=== PATIENT | male | born 1985 | race Caucasian/White ===

== ENCOUNTER 2017-03-29 07:46 | Observation (INO) | payer BC ==
[2017-03-29] MEDS ORDERED: Ondansetron 4 MG/2 ML SDV IVPUSH ONE (07:48)
[2017-03-29] MEDS ORDERED: Sodium Chloride 0.9% 1,000 ML IV ONE ×2 (07:49→09:01)
[2017-03-29] MEDS ORDERED: Ketorolac 30 MG/ML SDV IVPUSH ONE (07:49)
[2017-03-29] MEDS ORDERED: Tamsulosin 0.4 MG Cap.ER PO ONE (08:42)
--- NOTE | 2017-03-29 08:48 | EDM.PDOC ---
ED HPI GENERAL MEDICAL PROBLEM - General Chief Complaint: Back Pain or Injury Stated Complaint: Right back pain Time Seen by Provider: 03/29/17 08:15 Source of Information: Reports: Patient History Limitations: Reports: No Limitations - History of Present Illness INITIAL COMMENTS - FREE TEXT/NARRATIVE: Right sided lower back pain, sharp at times, overall constant in nature, since 0400 today. Had brief episode of similar pain several days ago. Dysuria for the last week or so. No hematuria. Also more frequency. Denies nausea/emesis. No fever. Hx of multiple kidney stones in past. Right Flank Pain Score (Numeric/FACES): 8 - Related Data Allergies Allergy/AdvReac Type Severity Reaction Status Date / Time No Known Allergies Allergy Verified 08/26/15 08:48 Home Meds: Home Meds Tamsulosin HCl [Flomax] 0.4 mg PO DAILY 03/29/17 [History] Past Medical History Genitourinary History: Reports: Renal Calculus Other Dermatologic History: superficial eczema-like Social & Family History - Tobacco Use Smoking Status *Q: Current Every Day Smoker Years of Tobacco use: 15 Packs/Tins Daily: 0.5 Used Tobacco, but Quit: No Month Tobacco Last Used: 08/26/15 Second Hand Smoke Exposure: No - Caffeine Use Caffeine Use: Reports: Coffee, Soda - Alcohol Use Days Per Week of Alcohol Use: 0 (No previous DWIs, problems with alcohol abuse, etc.) - Recreational Drug Use Recreational Drug Use: No Drug Use in Last 12 Months: Yes Recreational Drug Type: Reports: Marijuana/Hashish Recreational Drug Use Frequency: Rarely - Living Situation & Occupation Living situation: Reports: , ED ROS GENERAL - Review of Systems Review Of Systems: See Below Constitutional: Reports: Decreased Appetite. Denies: Fever, Chills, Weakness, Night Sweats, Diaphoresis HEENT: Reports: No Symptoms Respiratory: Reports: No Symptoms Cardiovascular: Reports: No Symptoms GI/Abdominal: Reports: Abdominal Pain, Decreased Appetite. Denies: Constipation , Diarrhea, Difficulty Swallowing, Distension, Hematemesis, Hematochezia, Nausea , Vomiting : Reports: Dysuria, Flank Pain, Frequency, Pain, Urgency. Denies: Hematuria, Incontinence, Urinary Retention Musculoskeletal: Reports: No Symptoms Skin: Reports: No Symptoms Neurological: Reports: No Symptoms Psychiatric: Reports: No Symptoms ED EXAM, GI/ABD - Physical Exam Exam: See Below Exam Limited By: No Limitations General Appearance: Alert, WD/WN, Moderate Distress Eyes: Bilateral: Normal Appearance, EOMI Ears: Normal External Exam Nose: Normal Inspection. No: Nasal Swelling, Nasal Drainage Throat/Mouth: Normal Lips, Normal Voice, No Airway Compromise Head: Atraumatic, Normocephalic Neck: Normal Inspection, Supple, Non-Tender, Full Range of Motion Respiratory/Chest: No Respiratory Distress, Lungs Clear, Normal Breath Sounds, No Accessory Muscle Use, Chest Non-Tender Cardiovascular: Regular Rate, Rhythm, No Murmur GI/Abdominal: Normal Bowel Sounds, Soft, Tenderness (bobby-umbilical area). No: Distention, Guarding, Rebound, Rigidity (Male) Exam: Deferred Rectal (Males) Exam: Deferred Back Exam: CVA Tenderness (R) Extremities: Normal Inspection, Normal Range of Motion, Non-Tender, No Pedal Edema, Normal Capillary Refill, Increased Warmth Neurological: Alert, Normal Cognition, Normal Gait, No Motor/Sensory Deficits Psychiatric: Normal Affect, Normal Mood Skin Exam: Warm, Dry, Intact, Normal Color Course - Vital Signs Last Recorded V/S: Last Vital Signs Temp 36.3 C 03/29/17 08:07 Pulse Resp 18 03/29/17 08:07 BP 130/109 H 03/29/17 08:07 Pulse Ox 100 03/29/17 08:07 - Orders/Labs/Meds Orders: Active Orders 24 hr Category Date Time Status Abdomen Pelvis wo Cont [CT] Stat Exams 03/29/17 07:50 Ordered Sodium Chloride 0.9% [Normal Saline] 1,000 ml Med 03/29/17 07:49 Active IV .BOLUS Medication Orders Sodium Chloride (Normal Saline) 1,000 mls @ 999 mls/hr IV .BOLUS ONE Stop: 03/29/17 08:49 Last Admin: 03/29/17 07:58 Dose: 999 mls/hr Meds: Medications Generic Name Dose Route Start Last Admin Trade Name Freq PRN Reason Stop Dose Admin Sodium Chloride 1,000 mls @ 999 mls/hr 03/29/17 07:49 03/29/17 07:58 Normal Saline IV 03/29/17 08:49 999 mls/hr .BOLUS ONE Administration Discontinued Medications Generic Name Dose Route Start Last Admin Trade Name Freq PRN Reason Stop Dose Admin Ketorolac Tromethamine 30 mg 03/29/17 07:49 03/29/17 07:53 Toradol IVPUSH 03/29/17 07:50 30 mg ONETIME ONE Administration Ondansetron HCl 4 mg 03/29/17 07:48 03/29/17 07:53 Zofran IVPUSH 03/29/17 07:49 4 mg ONETIME ONE Administration - Radiology Interpretation CT Results Date: 03/29/17 CT Results Time: 08:30 (3.5mm stone right at UVJ on right side) - Re-Assessments/Exams Free Text/Narrative Re-Assessment/Exam: 03/29/17 08:50 Pain improved after Toradol. CT confirmed stone. Admitted Obs for pain control and IV hydration. Departure - Departure Time of Disposition: 08:50 Disposition: Refer to Observation Condition: Good Clinical Impression: Tobacco user, Nephrolithiasis - Discharge Information Forms: ED Department Discharge - Problem List & Annotations (1) Nephrolithiasis SNOMED Code(s): 44911569 Code(s): N20.0 - CALCULUS OF KIDNEY Status: Acute Priority: High Current Visit: Yes Onset Date: ~03/29/17 Annotation/Comment:: 3.5mm stone at UVJ on right (2) Tobacco use SNOMED Code(s): 794136179 Code(s): Z72.0 - TOBACCO USE Status: Chronic Priority: Low Current Visit: No - Problem List Review Problem List Initiated/Reviewed/Updated: Yes - My Orders Last 24 Hours: My Active Orders 03/29/17 07:49 Sodium Chloride 0.9% [Normal Saline] 1,000 ml IV .BOLUS 03/29/17 07:50 Abdomen Pelvis wo Cont [CT] Stat - Assessment/Plan Admission H&P: Please use this note as an admission H&P Last 24 Hours: My Active Orders 03/29/17 07:49 Sodium Chloride 0.9% [Normal Saline] 1,000 ml IV .BOLUS 03/29/17 07:50 Abdomen Pelvis wo Cont [CT] Stat Assessment:: Kidney stone with right sided pain. Plan: IV fluids, pain and nausea management. Strain urine and observe for passage of stone.
[2017-03-29] MEDS ORDERED: HYDROmorphone 1 MG/ML Syringe IVPUSH ONE (08:53)
[2017-03-29] MEDS ORDERED: Bisacodyl 10 MG Supp RECTAL PRN (08:57)
[2017-03-29] MEDS ORDERED: Magnesium Hydroxide 400 MG/5 ML Susp 30 ML Cup PO PRN (08:57)
[2017-03-29] MEDS ORDERED: HYDROmorphone 1 MG/ML Syringe IVPUSH PRN (09:00)
[2017-03-29] MEDS ORDERED: Acetaminophen 325 MG Tab PO PRN (09:00)
[2017-03-29] MEDS: Sodium Chloride 0.9% 1,000 ML IV SCH ×2 (13:19→18:56)
[2017-03-29] MEDS ORDERED: Ondansetron 4 MG/2 ML SDV IVPUSH PRN (14:00)
[2017-03-29 14:10] LABS: CHLORIDE,CL 106 mmol/L (98-107); SODIUM,NA 139 mmol/L (136-145)
[2017-03-29] MEDS: Ketorolac 30 MG/ML SDV IVPUSH PRN (18:56)
[2017-03-30] MEDS: Ketorolac 30 MG/ML SDV IVPUSH PRN ×2 (00:13→10:56)
[2017-03-30] MEDS: Sodium Chloride 0.9% 1,000 ML IV SCH ×2 (00:13→08:09)
[2017-03-30 08:06] VITALS: BP 108/55
[2017-03-30] MEDS ORDERED: Tamsulosin 0.4 MG Cap.ER PO ONE (10:55)
--- NOTE | 2017-03-30 10:59 | PCM.DCSUM1 ---
Discharge Summary - Discharge Data Discharge Date: 03/30/17 Discharge Disposition: Home, Self-Care 01 Condition: Good - Discharge Diagnosis/Problem(s) (1) Nephrolithiasis SNOMED Code(s): 42211952 ICD Code: N20.0 - CALCULUS OF KIDNEY Status: Acute Priority: High Current Visit: Yes Onset Date: ~03/29/17 Problem Details: 3.5mm stone at UVJ on right (2) Tobacco use SNOMED Code(s): 836834170 ICD Code: Z72.0 - TOBACCO USE Status: Chronic Priority: Low Current Visit: No - Patient Summary/Data Complications: none Hospital Course: Pain controlled. IV fluids given. Urine strained but no stone noted to pass. Patient requests to go home and continue to strain urine/use PRN meds to control any new pain. Has Urology appointment tomorrow. - Patient Instructions Diet: Usual Diet as Tolerated Activity: As Tolerated Driving: May Drive Today Showering/Bathing: May Shower - Discharge Plan Prescriptions/Med Rec: Tamsulosin HCl [Flomax] 0.4 mg PO DAILY #30 cap.er.24h Home Medications: Home Meds Tamsulosin HCl [Flomax] 0.4 mg PO DAILY #30 cap.er.24h 03/30/17 [Rx] Forms: ED Department Discharge Referrals: Jenni Mac NP [Primary Care Provider] - - Discharge Summary/Plan Comment DC Time >30 min.: No Discharge Summary/Plan Comment: Continue to strain urine. Follow up with Urology this week as scheduled. Toradol 10mg every 6-8 hours as needed for pain. Keep hydrated. - General Info Date of Service: 03/30/17 Admission Dx/Problem (Free Text: kidney stone. Admitted for pain control and hydration. Functional Status: Reports: pain controlled (Pain/discomfort has completely resolved. ), tolerating diet, ambulating, urinating. Denies: new symptoms - Review of Systems General: Reports: No Symptoms HEENT: Reports: no symptoms Pulmonary: Reports: no symptoms Cardiovascular: Reports: No Symptoms Gastrointestinal: Reports: No symptoms Genitourinary: Reports: no symptoms Musculoskeletal: Reports: no symptoms Skin: Reports: no symptoms Neurological: Reports: No Symptoms Psychiatric: Reports: no symptoms - Patient Data Vitals - Most Recent: Last Vital Signs Temp 36.4 C 03/30/17 08:00 Pulse 68 03/30/17 08:00 Resp 16 03/30/17 08:00 BP 108/55 L 03/30/17 08:00 Pulse Ox 94 L 03/30/17 08:00 Weight - Most Recent: 117.48 kg I&O - Last 24 hours: Intake & Output 03/29/17 03/30/17 03/30/17 22:59 06:59 14:59 Intake Total 1599 2009 420 Output Total 1500 Balance 99 2009 420 Lab Results - Last 24 hrs: Laboratory Results - last 24 hr 03/29/17 03/29/17 03/29/17 Range/Units 13:50 14:05 17:30 WBC 9.6 (4.0-10.2) K/uL RBC 4.46 (4.33-5.41) M/uL Hgb 14.1 D (13.1-16.8) g/dL Hct 42.1 (39.0-49.0) % MCV 94.4 (84.0-98.0) fL MCH 31.6 (28.2-33.3) pg MCHC 33.5 (31.7-36.0) g/dL RDW 12.3 (11.2-14.1) % Plt Count 169 (150-350) K/uL Neut % (Auto) 63.0 (45.0-80.0) % Lymph % (Auto) 22.7 (10.0-50.0) % [place] % (Auto) 10.1 (2.0-14.0) % Eos % (Auto) 3.5 (0.0-5.0) % Baso % (Auto) 0.7 (0.0-2.0) % Neut # (Auto) 6.05 (1.40-7.00) K/uL Lymph # (Auto) 2.18 (0.50-3.50) K/uL [place] # (Auto) 0.97 (0.00-1.00) K/uL Eos # (Auto) 0.34 (0.00-0.50) K/uL Baso # (Auto) 0.07 (0.00-0.20) K/uL Sodium 139 (136-145) mmol/L Potassium 3.9 (3.5-5.1) mmol/L Chloride 106 (98-107) mmol/L Carbon Dioxide 26.9 (21.0-32.0) mmol/L BUN 11 (7-18) mg/dL Creatinine 1.12 (0.51-1.17) mg/dL Est Cr Clr Drug Dosing 102.00 mL/min Estimated GFR (MDRD) > 60 mL/min Glucose 94 (74-106) mg/dL Calcium 7.7 L (8.5-10.1) mg/dL Total Bilirubin 0.4 (0.2-1.0) mg/dL AST 18 (15-37) U/L ALT 30 (12-78) U/L Alkaline Phosphatase 64 (46-116) IU/L Total Protein 6.1 L (6.4-8.2) g/dL Albumin 3.3 L (3.4-5.0) g/dL Specimen Type Urinblad Urine Color Light yellow Urine Appearance Clear Urine pH 6.0 (5.0-9.0) Ur Specific [place] 1.010 (1.005-1.030) Urine Protein Negative (NEGATIVE) mg/dL Urine Glucose (UA) Negative (NEGATIVE) mg/dL Urine Ketones Negative (NEGATIVE) mg/dL Urine Occult Blood Small H (NEGATIVE) Urine Nitrite Negative (NEGATIVE) Urine Bilirubin Negative (NEGATIVE) Urine Urobilinogen 0.2 (0.2-1.0) E.U./dL Ur Leukocyte Esterase Negative (NEGATIVE) Urine RBC 0-5 /HPF Urine WBC 0-5 /HPF Ur Epithelial Cells Rare /LPF Urine Bacteria Not seen (NONE TO FEW) /HPF Med Orders - Current: Current Medications Acetaminophen (Tylenol) 650 mg PO Q4H PRN PRN Reason: analgesia/fever Last Admin: 03/29/17 10:27 Dose: 650 mg Bisacodyl (Dulcolax) 10 mg RECTAL DAILY PRN PRN Reason: Constipation Hydromorphone HCl (Dilaudid) 1 mg IVPUSH Q2H PRN PRN Reason: Pain (severe 7-10) Last Admin: 03/29/17 10:25 Dose: 1 mg Sodium Chloride (Normal Saline) 1,000 mls @ 150 mls/hr IV ASDIRECTED LISET Last Admin: 03/30/17 08:09 Dose: 150 mls/hr Ketorolac Tromethamine (Toradol) 30 mg IVPUSH Q6H PRN PRN Reason: Pain Stop: 04/03/17 14:01 Last Admin: 03/30/17 00:13 Dose: 30 mg Magnesium Hydroxide (Milk Of Magnesia) 30 ml PO BID PRN PRN Reason: Constipation Ondansetron HCl (Zofran) 4 mg IVPUSH Q6H PRN PRN Reason: Nausea/Vomiting Discontinued Medications Hydromorphone HCl (Dilaudid) 1 mg IVPUSH ONETIME ONE Stop: 03/29/17 08:54 Last Admin: 03/29/17 09:12 Dose: 1 mg Sodium Chloride (Normal Saline) 1,000 mls @ 999 mls/hr IV .BOLUS ONE Stop: 03/29/17 08:49 Last Admin: 03/29/17 07:58 Dose: 999 mls/hr Sodium Chloride (Normal Saline) 1,000 mls @ 250 mls/hr IV .BOLUS ONE Stop: 03/29/17 13:00 Last Admin: 03/29/17 09:13 Dose: 250 mls/hr Ketorolac Tromethamine (Toradol) 30 mg IVPUSH ONETIME ONE Stop: 03/29/17 07:50 Last Admin: 03/29/17 07:53 Dose: 30 mg Ondansetron HCl (Zofran) 4 mg IVPUSH ONETIME ONE Stop: 03/29/17 07:49 Last Admin: 03/29/17 07:53 Dose: 4 mg Tamsulosin HCl (Flomax) 0.4 mg PO ONETIME ONE Stop: 03/29/17 08:43 Last Admin: 03/29/17 09:12 Dose: 0.4 mg - Exam General: Reports: alert, oriented HEENT: Reports: Pupils equal, Pupils reactive, EOMI, Mucous membr. moist/pink Neck: Reports: supple Lungs: Reports: Clear to auscultation, Normal respiratory effort Cardiovascular: Reports: Regular Rate, Regular Rhythm Abdomen: Reports: bowel sounds present, soft, no tenderness, no distension Back Exam: Reports: Normal Inspection. Denies: CVA Tenderness (L), CVA Tenderness (R) Extremities: Reports: no edema Skin: Reports: warm, dry, intact Neurological: Reports: no new focal deficit Psy/Mental Status: Reports: alert, normal affect, normal mood *Q Meaningful Use (DIS) - VTE *Q VTE Criteria *Q: - Stroke *Q Stroke Criteria *Q: - AMI *Q AMI Criteria *Q:
== END 2017-03-30 11:26 | disposition home or self-care (01) ==
LOC: LL.ED 07:46 → LL.MS 08:36
PROVIDERS: ADMIT Emergency Medicine; ATTEND Emergency Medicine
DX: N20.0 Calculus of kidney (principal); Z72.0 Tobacco use; Z79.899 Other long term (current) drug therapy; F17.210 Nicotine dependence, cigarettes, uncomplicated
CPT/HCPCS: 36415; 74176; 80053; 81001; 85025; 96361; 96374; 96375; 96376; 99285; A9270; G0378; J1170; J1885; J2405; J7030